=== PATIENT | female | born 1945 | race Caucasian/White ===

== ENCOUNTER → 2023-12-19 11:30 | Outpatient (REF) | payer MEDICARE, SELFPAY | LOC: WDC 11:30 | PROVIDERS: ATTENDING PHYSICIAN Internal Medicine | DX: Z12.31 Encounter for screening mammogram for malignant neoplasm of breast (principal) | CPT/HCPCS: 77063; 77067 ==

== ENCOUNTER → 2024-07-29 12:59 | Outpatient (REF) | payer MEDICARE, SELFPAY | LOC: RAD 12:59 | PROVIDERS: ATTENDING PHYSICIAN Internal Medicine | DX: M81.0 Age-related osteoporosis without current pathological fracture (principal) | CPT/HCPCS: 77080 ==

== ENCOUNTER → 2024-12-23 08:31 | Outpatient (REF) | payer MEDICARE, SELFPAY | LOC: WDC 08:31 | PROVIDERS: ATTENDING PHYSICIAN Internal Medicine | DX: Z12.31 Encounter for screening mammogram for malignant neoplasm of breast (principal) | CPT/HCPCS: 77063; 77067 ==